=== PATIENT | female | born 1930 | race Caucasian/White ===

== ENCOUNTER 2017-11-27 07:17 | Observation (INO) | payer MEDICARE ==
[~2017-11-27 07:17] MED LIST: LIDOCAINE 1% PF 2 ML VIAL. ID; MORPHINE SULFATE 2 MG/ML DISP.SYRIN. IV; ONDANSETRON PF 4 MG/2 ML VIAL. IV; fentaNYL PF VIAL 100 MCG/2 ML VIAL IV
[2017-11-27] MEDS: IV RINGERS,LACTATED 1000ML 1,000 ML IV (08:06)
[2017-11-27] MEDS ORDERED: ONDANSETRON PF 4 MG/2 ML VIAL. (08:39)
[2017-11-27] MEDS ORDERED: PROPOFOL 20 ML IV (08:39)
[2017-11-27] MEDS ORDERED: LIDOCAINE 2% PF Vial for OR 5 ML VIAL. (08:39)
[2017-11-27] MEDS ORDERED: SUCCINYLCHOLINE 200 MG/10 ML VIAL. (08:40)
[2017-11-27] MEDS ORDERED: ESMOLOL 100 MG/10 ML VIAL. IV (09:01)
[2017-11-27] MEDS ORDERED: DEXAMETHASONE SOD PHOS 20 MG/5 ML VIAL. (09:01)
[2017-11-27] MEDS ORDERED: fentaNYL PF VIAL 100 MCG/2 ML VIAL ×2 (09:34→11:00)
[2017-11-27] MEDS ORDERED: LABETALOL 20 MG/4 ML DISP.SYRIN. (09:38)
[2017-11-27] MEDS: BUPIVACAINE-EPI 0.25%-1:200000 50 ML VIAL. (09:41)
[2017-11-27] MEDS ORDERED: ROCURONIUM 50 MG/5 ML VIAL. (09:42)
[2017-11-27] MEDS: IV DEXTROSE 5%-LACT RINGERS 1,000 ML IV (10:53)
[2017-11-27] MEDS ORDERED: ONDANSETRON PF 4 MG/2 ML VIAL. IV (11:00)
[2017-11-27] MEDS ORDERED: MORPHINE SULFATE 4 MG/ML DISP.SYRIN. IV (11:00)
[2017-11-27] MEDS ORDERED: 0.9 % SODIUM CHLORIDE 10 ML DISP.SYRIN. IV (11:00)
[2017-11-27] MEDS ORDERED: oxyCODONE/APAP 5/325 1 TAB TABLET PO (11:00)
[2017-11-27] MEDS: fentaNYL PF VIAL 100 MCG/2 ML VIAL IV ×2 (11:08→11:23)
[2017-11-27] MEDS ORDERED: PROCHLORPERAZINE 10 MG/2 ML VIAL. (11:11)
[2017-11-27] MEDS: PROCHLORPERAZINE 10 MG/2 ML VIAL. IV (11:24)
[2017-11-27] MEDS ORDERED: ARMODAFINIL PO (16:00)
[2017-11-27] MEDS ORDERED: FAMOTIDINE 20 MG TABLET. PO (16:00)
[2017-11-27] MEDS ORDERED: PROMETHAZINE 12.5 MG TABLET. PO (16:00)
[2017-11-27] MEDS: PROPRANOLOL 10 MG TABLET. PO ×2 (16:13→21:00)
[2017-11-27] MEDS: ACETAMINOPHEN 500 MG TABLET PO (17:43)
[2017-11-28] MEDS: IV DEXTROSE 5%-LACT RINGERS 1,000 ML IV (00:13)
[2017-11-28] MEDS: ACETAMINOPHEN 500 MG TABLET PO ×3 (06:00→09:41)
[2017-11-28] MEDS: CALCIUM CARBONATE 500 MG TAB.CHEW PO (09:41)
[2017-11-28] MEDS: MILNACIPRAN 50 MG TABLET PO (09:41)
[2017-11-28] MEDS: PROPRANOLOL 10 MG TABLET. PO (09:42)
[2017-11-28] MEDS ORDERED: ACETAMINOPHEN 500 MG TABLET PO (10:00)
[2017-11-28] MEDS ORDERED: CALCIUM CARBONATE 500 MG TAB.CHEW PO (10:00)
[2017-11-28] MEDS: oxyCODONE/APAP 5/325 1 TAB TABLET PO (13:09)
== END 2017-11-28 15:30 | disposition home or self-care (01) ==
LOC: SURG 07:17 → 4 NORTH 10:53
DX: K80.10 Calculus of gallbladder with chronic cholecystitis without obstruction (principal)
CPT/HCPCS: 47564; 97161-GP; A7015; G0378; G0379; G8978-CI-GP; G8979-CI-GP; G8980-CI-GP; J0330; J0780; J1100; J1956; J2405; J2704; J3010; J3490; J7030